=== PATIENT | male | born 2000 | race Caucasian/White ===

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

== ENCOUNTER 2019-01-30 09:06 | Day surgery (SDC) | payer MEDICAID ==
[~2019-01-30 09:06] MED LIST changes: +EPINEPHrine 1 MG/ML 30 ML MDV IRR SCH; +Lidocaine 1%/Sod Bicarbonate in NS 8.4% 1 ML Syringe IDERM PRN; -Lidocaine 1%/Sod Bicarbonate in NS 8.4% 1 ML Syringe IV PRN
--- NOTE | 2019-01-30 11:13 | PCM.PREANE ---
Preanesthetic Assessment - Anesthesia/Transfusion/Family Hx Anesthesia History: Prior Anesthesia Without Reaction Family History of Anesthesia Reaction: No Transfusion History: No Prior Transfusion(s) - Review of Systems General: No Symptoms Pulmonary: No Symptoms Cardiovascular: No Symptoms Gastrointestinal: No Symptoms Neurological: Numbness ("sometimes in fingers right hand") Other: Reports: None - Physical Assessment NPO Status Date: 01/29/19 NPO Status Time: 23:00 Vital Signs: Last Vital Signs Temp 36.7 C 01/30/19 09:10 Pulse 69 01/30/19 09:10 Resp 16 01/30/19 09:10 BP 137/91 H 01/30/19 09:10 Pulse Ox 98 01/30/19 09:10 Height: 1.88 m Weight: 138.799 kg ASA Class: 2 Mental Status: Alert & Oriented x3 Airway Class: Mallampati = 2 Dentition: Reports: Normal Dentition Thyro-Mental Finger Breadths: 2 Mouth Opening Finger Breadths: 2 ROM/Head Extension: Full Lungs: Clear to Auscultation, Normal Respiratory Effort Cardiovascular: Regular Rate, Regular Rhythm - Lab Values: Laboratory Last Values MRSA (PCR) Negative 01/28/19 11:40 - Allergies Allergies/Adverse Reactions: Allergies Allergy/AdvReac Type Severity Reaction Status Date / Time No Known Allergies Allergy Verified 01/29/19 13:18 - Blood Blood Available: No Product(s) Available: None - Anesthesia Plan Pre-Op Medication Ordered: Anxiolytic - Acknowledgements Anesthesia Type Planned: General Anesthesia, Regional Block (right interscalene block for post-op pain control request per Dr. Monaco and pt) Pt an Appropriate Candidate for the Planned Anesthesia: Yes Alternatives and Risks of Anesthesia Discussed w Pt/Guardian: Yes Pt/Guardian Understands and Agrees with Anesthesia Plan: Yes PreAnesthesia Questionnaire - Past Health History Medical/Surgical History: Denies Medical/Surgical History HEENT History: Reports: Sinusitis, Other (See Below) Other HEENT History: conjunctivitis, corneal abrasion, eye pain, sore throat Cardiovascular History: Reports: Other (See Below) Other Cardiovascular History: chest injury Respiratory History: Reports: Other (See Below) Other Respiratory History: cough, dypsnea, bronchitis, pleurisy, shortness of breath, mononucleosis Gastrointestinal History: Reports: Other (See Below) Other Gastrointestinal History: RUQ pain, increased LFTs, dehydration, nausea, vomiting, splenomegaly Genitourinary History: Reports: Other (See Below) Other Genitourinary History: elevated cre, groin pain, left flank pain, left groin pain, painful urination 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 Musculoskeletal History: Reports: Other (See Below) Other Musculoskeletal History: right shoulder pain, rib fx, carpal tunnel surgery, open wound upper extremity Neurological History: Reports: Headaches, Chronic, Migraines, Other (See Below) Other Neuro History: paresthesias, numbness Psychiatric History: Reports: Anxiety, Depression Endocrine/Metabolic History: Reports: None Hematologic History: Reports: None Other Hematologic History: dehydration Immunologic History: Reports: None Other Immunologic History: mononucleosis Oncologic (Cancer) History: Reports: None Dermatologic History: Reports: Other (See Below) Other Dermatologic History: acne, furnuncle, herpes zoster, rash, skin lesion - Infectious Disease History Infectious Disease History: Reports: Mononucleosis - Past Surgical History Head Surgeries/Procedures: Reports: None HEENT Surgical History: Reports: Adenoidectomy, Tonsillectomy Cardiovascular Surgical History: Reports: None Respiratory Surgical History: Reports: None GI Surgical History: Reports: None Female Surgical History: Reports: None Male Surgical History: Reports: None Endocrine Surgical History: Reports: None Musculoskeletal Surgical History: Reports: Carpal Tunnel Oncologic Surgical History: Reports: None Dermatological Surgical History: Reports: None - SUBSTANCE USE Smoking Status *Q: Current Every Day Smoker Tobacco Use Within Last Twelve Months: Snuff/Dip Second Hand Smoke Exposure: No Days Per Week of Alcohol Use: 0 Number of Drinks Per Day: 0 Total Drinks Per Week: 0 Recreational Drug Use History: No - HOME MEDS Home Medications: Home Meds Acetaminophen/HYDROcodone [[place] 325-5 MG] 1 - 2 tab PO Q6H PRN #30 tablet 01/30 [Rx] Cyclobenzaprine [Flexeril] 10 mg PO Q12H PRN #20 tab 01/30/19 [Rx] - CURRENT (IN HOUSE) MEDS Current Meds: Current Medications Epinephrine HCl (Adrenalin) 3 mg IRR ONETIME ERNESTO Stop: 01/30/19 23:00 Lactated Ringer's (Ringers, Lactated) 1,000 mls @ 125 mls/hr IV ASDIRECTED ERNESTO Stop: 01/30/19 23:00 Last Admin: 01/30/19 09:46 Dose: 125 mls/hr Lidocaine/Sodium Bicarbonate (Buffered Lidocaine 1% In Ns 8.4%) 0.25 ml IDERM ONETIME PRN PRN Reason: Prior to IV Start Stop: 01/30/19 18:00 Last Admin: 01/30/19 09:47 Dose: 0.25 ml Sodium Chloride (Saline Flush) 10 ml FLUSH ASDIRECTED PRN PRN Reason: Keep Vein Open Stop: 01/30/19 18:00
[2019-01-30] MEDS ORDERED: Lidocaine 1% 4 ML ONE ×2 (11:20→11:37)
[2019-01-30] MEDS ORDERED: fentaNYL 100 MCG/2 ML SDV ONE ×2 (11:20→11:37)
[2019-01-30] MEDS ORDERED: Midazolam 1 MG/ML 2 ML SDV ONE (11:20)
[2019-01-30] MEDS ORDERED: Ropivacaine 0.5% 5 MG/ML 30 ML SDV ONE (11:23)
[2019-01-30] MEDS ORDERED: Ondansetron 4 MG/2 ML SDV ONE (11:37)
[2019-01-30] MEDS ORDERED: Rocuronium 50 MG/5 ML Vial ONE (11:37)
[2019-01-30] MEDS ORDERED: Propofol 200 MG/20 ML SDV ONE (11:37)
[2019-01-30] MEDS ORDERED: Dexamethasone 4 MG/ML 5 ML MDV ONE (11:37)
[2019-01-30] MEDS ORDERED: Ketorolac 30 MG/ML SDV ONE (11:38)
[2019-01-30] MEDS ORDERED: ceFAZolin 1 GM Vial ONE ×2 (11:49)
--- NOTE | 2019-01-30 12:06 | PCM.SN ---
- Free Text/Narrative Note: Anesthesia Note: (Interscalene block note) Date: 01/30/2019 Time Out: 1129 Start: 1129 Stop: 1147 Surgical Procedure: Right Shoulder Video Arthroscopy Diagnosis: Right shoulder Pain Current Procedure: Right interscalene block under US guidance for postoperative pain control requested by Dr. Monaco. Patient chart reviewed, risk/benefits discussed with patient, consent obtained. Patient positioned supine, monitors/alarms on, oxygen placed via nasal cannula at 2 LPM. IV sedation administered: Versed 2mg IV Fentanyl 100mcg IV Right shoulder prepped with chloraprep x2. Sterile drapes placed with aseptic technique. Under US guidance (sterile US sleeve) right subclavian artery visualized along with the right brachial plexus. Plexus followed cephalad up to C6 cricoid level, and area localized with 4mls of 1% lidocaine. 22gauge 2 inch stimiplex needle inserted under US and guided to brachial plexus C5-C6 trunks with 0.44mV with stimulation of biceps noted. Stimulation abolished at 0.4mVs. with 1ml of Normal Saline injected to confirm needle not placed intraneurally. Incremental injection of 5mls with negative aspiration prior to each injection of 0.5% ropivacaine with 1:200,000 epinephrine. Total volume=30mls. Please refer to nurses notes for vital signs, patient tolerated procedure well. Thank you! Richi Mitchell CRNA
[2019-01-30] MEDS ORDERED: HYDROmorphone 0.5 MG/0.5 ML Syringe IVPUSH PRN (12:41)
[2019-01-30] MEDS ORDERED: Ondansetron 4 MG/2 ML SDV IVPUSH PRN (12:41)
[2019-01-30] MEDS ORDERED: fentaNYL 100 MCG/2 ML SDV IVPUSH PRN (12:41)
--- NOTE | 2019-01-30 13:45 | PCM.POSTAN ---
POST ANESTHESIA ASSESSMENT - MENTAL STATUS Mental Status: Alert, Oriented - VITAL SIGNS Vital Signs: Last Vital Signs Temp 36.7 C 01/30/19 09:10 Pulse 69 01/30/19 09:10 Resp 16 01/30/19 09:10 BP 137/91 H 01/30/19 09:10 Pulse Ox 98 01/30/19 09:10 - RESPIRATORY Respiratory Status: Respiratory Rate WNL, Airway Patent, O2 Saturation Stable ( NC O2 in recovery) - CARDIOVASCULAR CV Status: Pulse Rate WNL, Blood Pressure Stable - GASTROINTESTINAL GI Status: No Symptoms - PAIN Pain Score: 0 - POST OP HYDRATION Hydration Status: Adequate & Stable - OBSERVATIONS Free Text/Narrative:: Routine extubation in OR without event. HOB>30 degrees with transfer to PACU. Handoff to RN. VSS, SV, VALENTINO < RA, FAC, CTAB, 0/10. No concerns at this time.
[2019-01-30] MEDS ORDERED: Acetaminophen/HYDROcodone 325-5 MG Tab PO PRN (13:57)
--- NOTE | 2019-01-30 14:37 | PCM48HPAN ---
Post Anesthesia Note - EVALUATION WITHIN 48HRS OF ANESTHETIC Vital Signs in Normal Range: Yes Patient Participated in Evaluation: Yes Respiratory Function Stable: Yes Airway Patent: Yes Cardiovascular Function Stable: Yes Hydration Status Stable: Yes Pain Control Satisfactory: Yes Nausea and Vomiting Control Satisfactory: Yes Mental Status Recovered: Yes Vital Signs: Last Vital Signs Temp 36.7 C 01/30/19 09:10 Pulse 69 01/30/19 09:10 Resp 16 01/30/19 09:10 BP 137/91 H 01/30/19 09:10 Pulse Ox 98 01/30/19 09:10 - COMMENTS/OBSERVATIONS Free Text/Narrative:: Patient ready for discharge home. No concerns. No complications.
[2019-01-30 15:39] VITALS: BP 138/81; PULSE 84
--- NOTE | 2019-02-03 07:07 | PCM.OPNOTE ---
- General Post-Op/Procedure Note Date of Surgery/Procedure: 01/30/19 Operative Procedure(s): right shoulder video arthroscopy with superior labral anterior to posterior repair and limited debridement Pre Op Diagnosis: right shoulder SLAP tear Post-Op Diagnosis: Same Anesthesia Technique: General ET Tube, Regional Block Primary Surgeon: Roger Monaco Anesthesia Provider: Anthony Bland [facility] Specialist: Gaby Peñaloza EBL in mLs: 5 Complications: None Condition: Good
--- NOTE | 2019-02-04 22:10 | OR ---
DATE OF OPERATION: 01/30/2019 SURGEON: Roger Monaco MD OPERATION PERFORMED: Right shoulder video arthroscopy with superior labral [id number] repair and limited debridement. PREOPERATIVE DIAGNOSIS: Right shoulder superior labrum anterior and posterior tear. POSTOPERATIVE DIAGNOSIS: Right shoulder superior labrum anterior and posterior tear. ANESTHESIA: General endotracheal intubation with regional interscalene block. ANESTHESIA PROVIDER: Anthony Bland. PARKING METER MECHANIC: Gaby Peñaloza PA-C. ESTIMATED FLUID LOSS: 5 mL. COMPLICATIONS: None. CONDITION: Stable. DESCRIPTION OF PROCEDURE: The patient was identified in the preop holding area. Proper site was marked and identified by surgeon. The patient was taken back to the operating theater. After adequate anesthesia, he was placed in the lazy left lateral decubitus position. A wedge was placed posteriorly. At this time, the right upper extremity was then sterilely prepped and draped in the usual sterile fashion. OR time-out was performed. The patient received 2 g IV Ancef, and 12 pounds of traction was applied to the right upper extremity. Standard posterior incision was made. Trocar was introduced in the glenohumeral joint. At this time, with the use of a spinal needle, anterior portal was created from an outside-in technique. At this time, the patient showed no signs of chondromalacia. The anterior labrum was intact. Subscapularis was intact. The undersurface of the rotator cuff showed no erythema nor any tear or fraying. The biceps did show significant erythema in the groove as well as a type 2 SLAP tear, but that was not unstable off the superior labral region. At this time, a rasp and a bryan were used on the superior margin near the anterior and posterior portion of the superior labrum. Starting anteriorly, a 2.9 Arthrex PushLock labral anchor was placed anteriorly. Another one was placed at the base of the biceps attachment and then another 2.9 mm PushLock Arthrex anchor was placed posterior to the biceps tendon, and had adequate latter-day of the superior labrum and attachment at the biceps. The biceps otherwise was not frayed and it showed good latter-day of the footprint of the biceps and the anterior and superior labrum. At this time, the cursory examination showed no other signs of erythema or pathology. Excess saline was drained from the shoulder. 3-0 nylon was used for closure of the portal incision. Note that during the case, I did debride significant synovitis noted throughout the groove as well as the anterior and superior labrum as well. The patient was placed in a pillow sling and soft dressing and sent in stable condition. ESTIMATED BLOOD LOSS: MMODAL /[id number]
== END 2019-01-30 15:25 | disposition home or self-care (01) ==
LOC: JD.SDS 09:06
PROVIDERS: ATTEND Orthopaedic Surgery
DX: S43.431A Superior glenoid labrum lesion of right shoulder, initial encounter (principal); G43.109 Migraine with aura, not intractable, without status migrainosus; F17.210 Nicotine dependence, cigarettes, uncomplicated
CPT/HCPCS: 29807; 29822; 87641; C1713; J0171; J0690; J1100; J1885; J2001; J2250; J2405; J2704; J2795; J3010; J7120; 01630; 64415

== ENCOUNTER 2020-09-28 11:20 | Emergency (ER) | payer MEDICAID, OTHER ==
[2020-09-28 11:38] VITALS: BP 164/98; PULSE 80
[2020-09-28] MEDS ORDERED: Sodium Chloride 0.9% 10 ML Syringe FLUSH PRN (12:10)
[2020-09-28] MEDS ORDERED: Ondansetron 4 MG/2 ML SDV IVPUSH ONE (12:11)
[2020-09-28] MEDS ORDERED: HYDROmorphone 0.5 MG/0.5 ML Syringe IVPUSH ONE (12:11)
--- NOTE | 2020-09-28 12:16 | EDM.PDOC ---
ED HPI GENERAL MEDICAL PROBLEM - General Chief Complaint: Abdominal Pain Stated Complaint: ABD PAIN Time Seen by Provider: 09/28/20 12:00 Source of Information: Reports: Patient, RN Notes Reviewed History Limitations: Reports: No Limitations - History of Present Illness INITIAL COMMENTS - FREE TEXT/NARRATIVE: Patient is a 20-year-old male who presents to the ER for the evaluation of his right upper quadrant abdominal pain. Patient notes this started on of last week, and he has had decreased appetite for the last few days as well. Has some mild nausea when he eats, last night when he had supper he vomited about 15 minutes after he ate. He went to the [facility] yesterday, he states that they tested his urine, and given prescription for meloxicam due to his right upper quadrant/flank pain. States that he took it last yesterday, but he only took 1 dose because it did not seem to help much. The patient states that he saw a chiropractor on Sunday as well for symptoms but it did not seem to help. He is not nauseous at this time, had not having any fevers or chills, cough or shortness of breath. He is denying any diarrhea, and last had a bowel movement yesterday that was normal for him. States he is on Adderall for ADD purposes, and his primary care provider is Kathryn Esposito. Patient states that he cannot even lay on his right side due to the pain. States that the pain is constant, seems to worsen with movement. It is a very sharp stabbing pain. Patient is also complaining of some back pain. Right Abdomen Pain Score (Numeric/FACES): 7 - Related Data Allergies Allergy/AdvReac Type Severity Reaction Status Date / Time No Known Allergies Allergy Verified 09/28/20 11:33 Home Meds: Home Meds Dextroamphetamine/Amphetamine [Dextroamp-Amphetamin 30 mg Tab] 30 mg PO BID 09/28/20 [History] Ondansetron [Zofran ODT] 4 mg PO Q8H PRN #15 tab.dis 09/28/20 [Rx] Past Medical History - Past Health History Medical/Surgical History: Denies Medical/Surgical History HEENT History: Reports: Other (See Below) Other HEENT History: conjunctivitis, corneal abrasion, herpes zoster Cardiovascular History: Reports: Other (See Below) Other Cardiovascular History: chest pain and chest injury Respiratory History: Reports: Other (See Below) Other Respiratory History: cough, dypsnea, bronchitis Gastrointestinal History: Reports: Other (See Below) Other Gastrointestinal History: abdominal pain, elevated LFTs Genitourinary History: Reports: Other (See Below) Other Genitourinary History: elevated creatinine, groin pain, painful urination CONSULTING SYSTEMS ENGINEER History: Reports: None Musculoskeletal History: Reports: Other (See Below) Other Musculoskeletal History: rib fracture Neurological History: Reports: Headaches, Chronic, Migraines Other Neuro History: numbness Psychiatric History: Reports: ADHD, Anxiety, Depression Endocrine/Metabolic History: Reports: Obesity/BMI 30+ Hematologic History: Reports: Other (See Below) Other Hematologic History: dehydration Immunologic History: Reports: Other (See Below) Other Immunologic History: mononucleosis Oncologic (Cancer) History: Reports: None Dermatologic History: Reports: Other (See Below) Other Dermatologic History: acne, furnucle, lesion, rash - Infectious Disease History Infectious Disease History: Reports: Mononucleosis - Past Surgical History HEENT Surgical History: Reports: Adenoidectomy, Tonsillectomy Musculoskeletal Surgical History: Reports: Carpal Tunnel Social & Family History - Tobacco Use Tobacco Use Status *Q: Current Every Day Tobacco User Years of Tobacco use: 3 Packs/Tins Daily: 0.5 - Caffeine Use Caffeine Use: Reports: None - Recreational Drug Use Recreational Drug Use: No ED ROS GENERAL - Review of Systems Review Of Systems: Comprehensive ROS is negative, except as noted in HPI. ED EXAM, GI/ABD - Physical Exam Exam: See Below Exam Limited By: No Limitations General Appearance: Alert, WD/WN, No Apparent Distress Respiratory/Chest: No Respiratory Distress, Lungs Clear, Normal Breath Sounds, No Accessory Muscle Use, Chest Non-Tender Cardiovascular: Normal Peripheral Pulses, Regular Rate, Rhythm, No Edema GI/Abdominal Exam: Normal Bowel Sounds, Soft, No Distention, No Mass, Tender (Alfaro's sign positive and tender along right lateral rib cage.) Extremities: Normal Inspection, Normal Capillary Refill Neurological: Alert, Oriented, Normal Cognition, No Motor/Sensory Deficits Psychiatric: Normal Affect, Normal Mood Skin Exam: Warm, Dry, Intact, Normal Color, No Rash Course - Vital Signs Last Recorded V/S: Last Vital Signs Temp 97.5 F 09/28/20 11:34 Pulse 80 09/28/20 11:34 Resp 14 09/28/20 11:34 BP 164/98 H 09/28/20 11:34 Pulse Ox 100 09/28/20 11:34 - Orders/Labs/Meds Orders: Active Orders 24 hr Category Date Time Status Peripheral IV Care [RC] . DIRECTED Care 09/28/20 12:11 Ordered Sodium Chloride 0.9% [Saline Flush] Med 09/28/20 12:10 Ordered 10 ml FLUSH ASDIRECTED PRN Peripheral IV Insertion Adult [OM.PC] Routine Oth 09/28/20 12:10 Ordered Medication Orders Sodium Chloride (Sodium Chloride 0.9% 10 Ml Syringe) 10 ml FLUSH ASDIRECTED PRN PRN Reason: Keep Vein Open Last Admin: 09/28/20 11:35 Dose: 10 ml Documented by: ISHA Labs: Laboratory Tests 09/28/20 09/28/20 09/28/20 Range/Units 11:34 11:34 12:25 WBC 8.54 (4.23-9.07) K/mm3 RBC 5.57 (4.63-6.08) M/mm3 Hgb 17.2 D (13.7-17.5) gm/dl Hct 48.8 (40.1-51.0) % MCV 87.6 (79.0-92.2) fl MCH 30.9 (25.7-32.2) pg MCHC 35.2 (32.2-35.5) g/dl RDW Std Deviation 40.6 (35.1-43.9) fL Plt Count 362 H (163-337) K/mm3 MPV 8.8 L (9.4-12.3) fl Neut % (Auto) 63.4 (34.0-67.9) % Lymph % (Auto) 25.5 (21.8-53.1) % Benzie % (Auto) 9.3 (5.3-12.2) % Eos % (Auto) 1.6 (0.8-7.0) Baso % (Auto) 0.2 (0.1-1.2) % Neut # (Auto) 5.41 H (1.78-5.38) K/mm3 Lymph # (Auto) 2.18 (1.32-3.57) K/mm3 Benzie # (Auto) 0.79 (0.30-0.82) K/mm3 Eos # (Auto) 0.14 (0.04-0.54) K/mm3 Baso # (Auto) 0.02 (0.01-0.08) K/mm3 Sodium 141 (136-145) mEq/L Potassium 4.3 (3.5-5.1) mEq/L Chloride 105 (98-107) mEq/L Carbon Dioxide 29 (21-32) mEq/L Anion Gap 11.3 (5-15) BUN 16 (7-18) mg/dL Creatinine 1.0 (0.7-1.3) mg/dL Est Cr Clr Drug Dosing 135.86 mL/min Estimated GFR (MDRD) > 60 (>60) mL/min BUN/Creatinine Ratio 16.0 (14-18) Glucose 111 H (70-99) mg/dL Calcium 9.2 (8.5-10.1) mg/dL Total Bilirubin 0.4 (0.2-1.0) mg/dL GGT 42 (15-85) U/L AST 11 L (15-37) U/L ALT 28 (16-63) U/L Alkaline Phosphatase 52 (46-116) U/L Total Protein 7.3 (6.4-8.2) g/dl Albumin 3.9 (3.4-5.0) g/dl Globulin 3.4 gm/dL Albumin/Globulin Ratio 1.2 (1-2) Lipase 51 L (73-393) U/L Urine Color Yellow (Yellow) Urine Appearance Slt cloudy H (Clear) Urine pH 7.0 (5.0-8.0) Ur Specific [place] 1.015 (1.005-1.030) Urine Protein Negative (Negative) Urine Glucose (UA) Negative (Negative) Urine Ketones Negative (Negative) Urine Occult Blood Negative (Negative) Urine Nitrite Negative (Negative) Urine Bilirubin Negative (Negative) Urine Urobilinogen 0.2 (0.2-1.0) Ur Leukocyte Esterase Negative (Negative) Urine RBC 0-5 (0-5) /hpf Urine WBC 0-5 (0-5) /hpf Ur Epithelial Cells 0-5 (0-5) /hpf Urine Bacteria Few (FEW) /hpf Urine Mucus Not seen (FEW) /hpf Meds: Medications Generic Name Dose Route Start Last Admin Trade Name Bentonq PRN Reason Stop Dose Admin Sodium Chloride 10 ml 09/28/20 12:10 09/28/20 11:35 Sodium Chloride 0.9% 10 Ml Syringe FLUSH 10 ml ASDIRECTED PRN Administration Keep Vein Open Discontinued Medications Generic Name Dose Route Start Last Admin Trade Name Bentonq PRN Reason Stop Dose Admin Hydromorphone HCl 0.5 mg 09/28/20 12:11 Hydromorphone 0.5 Mg/0.5 Ml Syringe IVPUSH 09/28/20 12:12 ONETIME ONE Ondansetron HCl 4 mg 09/28/20 12:11 Ondansetron 4 Mg/2 Ml Sdv IVPUSH 09/28/20 12:12 ONETIME ONE - Re-Assessments/Exams Free Text/Narrative Re-Assessment/Exam: 09/28/20 12:15 Patient presents to the ER for the evaluation of his right upper quadrant abdominal pain, for today's purposes we will go ahead and get a gallbladder ultrasound, get some basic labs for further evaluation. Patient was okay with this plan. I have ordered 0.5 mg IV Dilaudid and 4 mg IV Zofran should he need any nausea or pain meds on a PRN basis. 09/28/20 13:47 Laboratory evaluation is unremarkable, and ultrasound demonstrated no sign of gallstones, no common bile duct dilatation. It is likely that his right upper quadrant/flank pain is more due to chest wall tenderness/musculoskeletal etiology. We will have the patient stick to more of a clear liquid diet over the next 24 to 48 hours, have him start Prilosec for suspected stomach issues, give him something for nausea meds, and have him follow-up with a regular provider if his pain is not much better. Departure - Departure Time of Disposition: 13:49 Disposition: Home, Self-Care 01 Condition: Good Clinical Impression: Musculoskeletal chest pain, Upper abdominal pain of unknown etiology - Discharge Information *PRESCRIPTION DRUG MONITORING PROGRAM REVIEWED*: No *COPY OF PRESCRIPTION DRUG MONITORING REPORT IN PATIENT TRACY: No Prescriptions: Ondansetron [Zofran ODT] 4 mg PO Q8H PRN #15 tab.dis PRN Reason: Nausea Instructions: Abdominal Pain, Adult, [id number], Chest Wall Pain, [id number] Referrals: Gold,Kathryn, [employer] [Primary Care Provider] - Forms: ED Department Discharge Additional Instructions: You were evaluated in the ER today for your right upper abdominal pain/flank pain. Abdominal ultrasound was obtained at today's visit, demonstrates no gallstones, or common bile duct dilatation or issues. Laboratory evaluation was also unremarkable for any acute findings. Please continue to use ibuprofen 600 mg every 6 hours as needed for ongoing pain or discomfort in your right chest wall. You might want to do this for the next few days. Please eat a good meal, before taking this medication as it can be somewhat hard of the stomach. Recommend you start a medication like Prilosec as well, for acid suppression in the stomach, please use 1 tablet daily for ongoing management. Please note this medication can take up to 72 hours to start providing benefit. Recommend you stick to a clear liquid diet over the next few days, and advance to bland as tolerated to see if this can help make your abdomen/stomach problems feel a little bit better. You were given a medication called Zofran, for nausea purposes, you may take 1 tablet dissolvable under your tongue every 8 hours as needed for ongoing nausea management. This medication was electronically sent to the [facility] located on [address]. Recommend you follow-up with your regular care provider for ongoing management of your symptoms. Do not hesitate to return to the ER at any time if symptoms change or worsen. Sepsis Event Note (ED) - Evaluation Sepsis Screening Result: No Definite Risk - Focused Exam Vital Signs: Vital Signs Temp Pulse Resp BP Pulse Ox 09/28/20 11:34 97.5 F 80 14 164/98 H 100 - My Orders Last 24 Hours: My Active Orders 09/28/20 12:10 Sodium Chloride 0.9% [Saline Flush] 10 ml FLUSH ASDIRECTED PRN Peripheral IV Insertion Adult [OM.PC] Routine 09/28/20 12:11 Peripheral IV Care [RC] . DIRECTED - Assessment/Plan Last 24 Hours: My Active Orders 09/28/20 12:10 Sodium Chloride 0.9% [Saline Flush] 10 ml FLUSH ASDIRECTED PRN Peripheral IV Insertion Adult [OM.PC] Routine 09/28/20 12:11 Peripheral IV Care [RC] . DIRECTED
--- NOTE | 2020-09-28 13:07 | US ---
Limited abdominal ultrasound: Multiple real-time images of the upper right abdomen were obtained. Comparison: Prior abdominal ultrasound study of 07/12/17. Findings: Liver shows no focal parenchymal abnormality. Gallbladder contains no shadowing gallstones. No gallbladder wall thickening is seen. Common bile duct is not optimally seen but is felt to be normal in size. Right kidney shows no hydronephrosis or mass. Right kidney measures 12.0 cm in length. Pancreas is mostly obscured. Visualized portions appear within normal limits. Main portal vein shows normal hepatopedal flow. Impression: 1. Nothing acute is seen on right upper quadrant abdominal ultrasound. Diagnostic code #1
== END 2020-09-28 14:00 | disposition home or self-care (01) ==
LOC: JD.ED 11:20
DX: R10.11 Right upper quadrant pain (principal); R07.89 Other chest pain; E66.9 Obesity, unspecified; Z68.37 Body mass index [BMI] 37.0-37.9, adult; Z72.0 Tobacco use
CPT/HCPCS: 36415; 76705; 76705-26; 80053; 81001; 82977; 83690; 85025; 99283; 99284-25

== ENCOUNTER 2021-12-15 08:05 | Day surgery (SDC) | payer OTHER ==
[~2021-12-15 08:05] MED LIST changes: +Acetaminophen/HYDROcodone 325-5 MG Tab PO PRN; -EPINEPHrine 1 MG/ML 30 ML MDV IRR SCH; +Sodium Chloride 0.9% 10 ML Syringe FLUSH SCH
[2021-12-15] MEDS ORDERED: Propofol 200 MG/20 ML SDV ONE ×3 (08:23→09:46)
[2021-12-15] MEDS ORDERED: fentaNYL 100 MCG/2 ML SDV ONE (08:24)
[2021-12-15] MEDS ORDERED: Ondansetron 4 MG/2 ML SDV ONE (08:24)
[2021-12-15] MEDS ORDERED: Bupivacaine 0.25% 10 ML SDV ONE (09:14)
[2021-12-15] MEDS ORDERED: Lidocaine 1% 10 ML MDV ONE (09:14)
[2021-12-15] MEDS ORDERED: Ondansetron 4 MG/2 ML SDV IVPUSH PRN (09:25)
[2021-12-15] MEDS ORDERED: HYDROmorphone 0.5 MG/0.5 ML Syringe IVPUSH PRN (09:25)
[2021-12-15] MEDS ORDERED: fentaNYL 100 MCG/2 ML SDV IVPUSH PRN (09:25)
[2021-12-15 15:58] VITALS: BP 132/77; PULSE 61
== END 2021-12-15 10:55 | disposition home or self-care (01) ==
LOC: JD.SDS 08:05
PROVIDERS: ATTEND Orthopaedic Surgery
DX: G56.11 Other lesions of median nerve, right upper limb (principal); F90.9 Attention-deficit hyperactivity disorder, unspecified type; G56.01 Carpal tunnel syndrome, right upper limb; F41.9 Anxiety disorder, unspecified; F32.A Depression, unspecified; F17.220 Nicotine dependence, chewing tobacco, uncomplicated; E66.9 Obesity, unspecified; Z79.899 Other long term (current) drug therapy; Z98.890 Other specified postprocedural states
CPT/HCPCS: 64721; A9270; J2405; J2704; J3010; J3490; J7120; 01810